=== PATIENT | male | born 1990 | race Hispanic/Latino ===

== ENCOUNTER 2021-10-24 20:32 | Emergency (ER) | payer SELFPAY ==
--- NOTE | ~2021-10-24 | CT_ITS ---
EXAMINATION: CT brain wo con INDICATION: Altered mental status, slurred speech COMPARISON: None TECHNIQUE: Standard unenhanced head CT. The dose-length product (DLP) was 681.00 mGy-cm. The mA was a djusted according to patient size. Iterative reconstruction technique was employed. FINDINGS: There is no intracranial hemorrhage, acute infarction, or abnormal mass lesion. The ventric les are normal. There is no abnormal mass effect or midline shift. The lema-white matter differentiat ion is normal. The basal cisterns are patent. The orbits are normal. There is mild mucosal thickening of the paranasal sinuses. IMPRESSION: 1. No acute intracranial abnormality. Reviewed, dictated and finalized at location F. ENGINEER
--- NOTE | ~2021-10-24 | XR_ITS ---
EXAMINATION: XR chest 1V portable INDICATION: Altered mental status TECHNIQUE: Portable AP chest at 2128 hours COMPARISON: None available FINDINGS: The lungs are free of acute opacities. There is no pleural effusion or pneumothorax. The ca rdiomediastinal silhouette is normal. The visualized bones and soft tissues are unremarkable. IMPRESSION: 1. No acute cardiopulmonary abnormality. Reviewed, dictated and finalized at location F. LEGAL SECRETARY
--- NOTE | ~2021-10-24 | CT_ITS ---
EXAMINATION: CT cervical spine wo con DATE: 10/24/2021 22:12 INDICATION: Neck pain after fall TECHNIQUE: Computed tomography (CT) of the cervical spine was performed without intravenous contrast. The dose-length product was 415 mGy-cm. Automated exposure control and iterative reconstruction tech [id number] were employed. COMPARISON: None FINDINGS: There is levoscoliosis. Vertebral body heights are maintained. No acute fracture or traumat ic malalignment. Craniovertebral junction within normal limits. Lung apices are normal. No evidence f or perched facet. Odontoid process is normal. IMPRESSION: 1. No acute abnormality of the cervical spine. Reviewed, dictated and finalized at location A. R AUTOMATIC
--- NOTE | 2021-10-24 20:35 | ECG_ITS ---
Measurements Intervals [place] Rate: 89 P: 62 [place]: 157 QRS: -14 QRSD: 97 T: 31 QT: 342 QTc: 417 Interpretive Statements SINUS RHYTHM NORMAL ECG Electronically Signed On 10-25-2021 6:26:14 DRIVER COURIER by Dougie Law D.O.
[2021-10-24 20:36] VITALS: BP 132/87; PULSE 92; RESP 20; TEMP 36.7; O2SAT 100
[2021-10-24 20:45] VITALS: PULSE 91
[2021-10-24 21:02] LABS: Glucose Point of Care 98 mg/dl (65-105)
[2021-10-24] MEDS: SODIUM CHLORIDE 0.9% IV 1,000 ML 999 ML IV CONT (21:09)
[2021-10-24 21:11] VITALS: BP 111/68; PULSE 84; RESP 17; O2SAT 100
[2021-10-24 21:19] LABS: Basophils Percent Auto 0.7 % (0.2-1.2); Eosinophils Percent Auto 0.5 % (0-4.4); Hematocrit 40.7 % (42.0-52.0); Hemoglobin 13.5 g/dL (14.0-18.0); Immature Granulocyte Absolute 0.02 K/mm3 (0.00-0.031); Immature Granulocyte Percent A 0.4 % (0-0.5); Lymphocytes Absolute Auto 1.83 K/mm3 (0.9-3.2); Lymphocytes Percent Auto 33.4 % (18.3-44.2); Mean Corpuscular HGB Conc 33.2 g/dl (32-36); Mean Corpuscular Hemoglobin 28.9 pg (26-34); Mean Corpuscular Volume 87.2 fl (80-100); Mean Platelet Volume 9.4 fl (7.4-10.4); Monocytes Absolute Auto 0.4 K/mm3 (0.1-0.6); Monocytes Percent Auto 6.6 % (2.6-8.5); Neutrophils Absolute Auto 3.2 K/mm3 (1.3-6.7); Neutrophils Percent Auto 58.4 % (45.5-73.1); Platelet Count Result 251 k/mm3 (150-375); Red Blood Count 4.67 M/mm3 (4.6-6.20); Red Cell Distribution Width 13.1 % (11.5-14.5); White Blood Count 5.5 K/mm3 (4.5-10.0)
[2021-10-24 21:25] LABS: Add Urine Microscopic? YES; Appearance Urine Clear (Clear); Bilirubin Urine 1+ (Negative); Blood Urine Negative (Negative); Color Urine Amber (Yellow); Glucose Urine UA Negative (Negative); Ketones Urine Trace mg/dL (Negative); Leukocyte Esterase Ur Negative LEU/UL (Negative); Mucus Urine Heavy /lpf; Nitrate Urine Negative (Negative); Protein Urine 1+ mg/dL (Negative); Squamous Epithelial Cell Urine Rare /hpf (Few)
[2021-10-24 21:27] LABS: Specific Grav Ur 1.035 (1.001-1.035)
[2021-10-24 21:29] LABS: INR 1.1; Prothrombin Time 13.4 Seconds (11.1-14.7)
[2021-10-24 21:29] LABS: Alveolar/Arterial O2 Gradient 66.8 mmHg; Base Excess ABG -3.3 mEq/l (+/-2.0); Device ROOM AIR; Fractional Inspired Oxygen 21 %; Modified Allen's Test Pass; Oxygen Content ABG 17.7 %vol (16.0-22.0); Oxygen Saturation ABG 98.2 % (95.0-100.0); Oxyhemoglobin 95.8 % THb (90.0-100.0); PCO2 ABG 30.8 mmHg (35.0-45.0); PO2 ABG 110.6 mmHg (80.0-100.0); PO2 FiO2 Ratio Arterial Blood 5.27 %; Site Drawn RIGHT RADIAL
[2021-10-24 21:30] LABS: Partial Thromboplastin Time 29.8 SECONDS (22.3-36.8)
[2021-10-24 21:32] LABS: Acetaminophen < 10 ug/mL (10-30); Alanine Aminotransferase 20 U/L (4-50); Alkaline Phosphatase 73 U/L (38-126); Ammonia < 9 umol/L (9-30); Anion Gap 7 mmol/L (8-16); Aspartate Amino Transferase 25 U/L (17-59); Bilirubin,Total 0.7 mg/dL (0.2-1.3); Blood Urea Nitrogen 12 mg/dL (9-20); Calcium 8.6 mg/dL (8.4-10.2); Carbon Dioxide 26 mmol/L (22-30); Chloride 106 mmol/L (98-107); Creatine Kinase 66 U/L (55-170); Estimated CRCL calculation 109 ml/min; Estimated Glomerular Filt Rate > 60; Ethanol < 10 mg/dL (<10); Glucose 104 mg/dL (65-110); Lactic Acid Reflex 1.5 mmol/L (0.7-2.1); Potassium 3.7 mmol/L (3.4-5.0); Salicylate < 1.0 mg/dL (2-20); Sodium 139 mmol/L (137-145)
[2021-10-24 21:35] LABS: Barbiturate Screen Urine Negative (Negative); Benzodiazepines Screen Urine Positive (Negative)
[2021-10-24 21:37] LABS: Cannabinoid Screen Urine Negative (Negative); Cocaine Screen Urine Negative (Negative); Methadone Screen Urine Negative (Negative); Opiate Screen Urine Negative (Negative); Phencyclidine Screen Urine Negative (Negative)
[2021-10-24 21:44] LABS: Troponin I < 0.012 ng/mL (0.000-0.034)
[2021-10-24] MEDS: LACTATED RINGERS 1,000 ML 999 ML IV CONT (22:01)
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
[2021-10-24 22:21] VITALS: BP 106/64; PULSE 67; RESP 15; O2SAT 100
[2021-10-24 22:29] LABS: Amphetamine Screen Urine Positive (Negative)
[2021-10-24 23:08] VITALS: BP 107/70; PULSE 70; RESP 18; O2SAT 100
[2021-10-24] MEDS: MECLIZINE HCL 25 MG TABLET PO (23:51)
[2021-10-25] MEDS: levETIRAcetam Tablet 250 MG, levETIRAcetam Tablet 500 MG 750 MG PO (00:05)
[2021-10-25 00:06] VITALS: BP 110/78; PULSE 71; RESP 15; O2SAT 98
== END 2021-10-25 00:07 | disposition home or self-care (01) ==
PROVIDERS: Emergency Provider General Practice
DX: G40.909 Epilepsy, unspecified, not intractable, without status epilepticus (principal)
CPT/HCPCS: 36415; 36600; 51701; 70450; 71045; 72125; 80053; 80307; 81001; 82140; 82550; 82805; 82948; 83605; 84443; 84484; 85025; 85610; 85730; 93005; 96360; 96361; 99284; A9270; J7030; J7120